=== PATIENT | male | born 1950 | race Caucasian/White ===

== ENCOUNTER 2017-08-30 18:26 | Emergency (ER) | payer SELFPAY ==
[~2017-08-30] VITALS: Ht 170.2 cm; Wt 75.0 kg
[2017-08-30 18:28] VITALS: BP 165/88; PULSE 77; RESP 18; TEMP 97.5; O2SAT 99
[2017-08-30] MEDS ORDERED: CYMB60CA PO (19:36)
[2017-08-30] MEDS ORDERED: EZET10 PO (19:36)
[2017-08-30] MEDS ORDERED: LOSA100T PO (19:36)
[2017-08-30] MEDS ORDERED: PRED5TAB PO (19:36)
[2017-08-30] MEDS ORDERED: LIPI80TA PO (19:36)
[2017-08-30] MEDS ORDERED: HYDR-3113 PO (19:36)
[2017-08-30] MEDS ORDERED: EVOL1.7I (19:36)
[2017-08-30] MEDS ORDERED: FOLI400T PO (19:36)
[2017-08-30] MEDS ORDERED: OMEG1CAP53 PO (19:36)
[2017-08-30] MEDS ORDERED: BYST10TA2 PO (19:36)
[2017-08-30] MEDS ORDERED: MULTTAB67 PO (19:36)
[2017-08-30] MEDS ORDERED: HYDR25TA5 PO (19:36)
[2017-08-30] MEDS ORDERED: NIAC500T5 PO (19:36)
[2017-08-30] MEDS ORDERED: HUMI40KI SQ (19:36)
[2017-08-30] MEDS ORDERED: OMEGCAP PO (19:36)
[2017-08-30] MEDS ORDERED: ASPI-183 PO (19:36)
[2017-08-30] MEDS ORDERED: OMEP20TA93 PO (19:36)
[2017-08-30] MEDS ORDERED: KETOROLAC TROMETHAMINE 60 MG/2 ML (IM) VIAL IM ONE (20:30)
[2017-08-30] MEDS ORDERED: DIAZEPAM 10 MG TAB PO ONE (20:30)
--- NOTE | 2017-08-30 20:39 | PD ---
HPI Chief Complaint: Back/ Neck Pain or Injury Time Seen by Provider: 19:33 Travel History International Travel<30 days: No Contact w/Intl Traveler<30days: No Traveled to known affect area: No History of Present Illness HPI This is a 67-year-old male here with neck pain and muscle spasms since this morning. He reports he awoke in the middle of the night with mild neck pain. He thought he slipped on the neck wrong. As the day progressed the pain and muscle stiffness intensified. He denies headache, fever or chills. No injury or trauma. He reports the pain is localized to either side of the neck and worse with range of motion. Slightly relieved with rest. Symptom severity is moderate. PFSH Past Medical History Hx Anticoagulant Therapy: Yes (plavix) Cardiovascular Problems: Yes (HTN, cholesterol) High Cholesterol: Yes Hypertension: Yes Myocardial Infarction: Yes Past Surgical History Cholecystectomy: Yes Coronary Artery Bypass Graft: Yes Tonsillectomy: Yes Other Surgery: Yes (thyroidectomy ) Social History Alcohol Use: Yes Tobacco Use: No Substance Use: No Allergies-Medications (Allergen,Severity, Reaction): Coded Allergies: No Known Allergies (Unverified , 08/30/17) Reported Meds & Prescriptions Reported Meds & Active Scripts Active Reported Repatha PF Inj (Evolocumab PF Inj) 140 Mg/Ml Syr [place]-3 Fish Oil/Vitamin (Fish Oil-Cholecalciferol) 1,000-1,000 Mg Cap 1 Cap PO DAILY Multiple Vitamin 1 Tab 1 Tab PO DAILY Folic Acid 0.4 Mg Tab 400 Mcg PO DAILY Niacin 500 Mg Tab 500 Mg PO DAILY Aspirin 325 Mg Tab 325 Mg PO DAILY Vicodin Es (Hydrocodone-Acetaminophen) 7.5-300 Tab 1 Tab PO BID PRN Omeprazole 20 Mg Tab 20 Mg PO DAILY Cymbalta DR (Duloxetine HCl) 60 Mg Capdr 60 Mg PO DAILY Prednisone 5 Mg Tab 3 Mg PO DAILY Humira 2-Pack Inj (Adalimumab 2-Pack Inj) 40 Mg/0.8 Ml Syr 40 Mg SQ Q14D Lovaza (Hziok-1-Rfat Ethyl Esters) 1 Gm Cap 2 Gm PO QID Hydrochlorothiazide 25 Mg Tab 25 Mg PO DAILY Bystolic (Nebivolol) 10 Mg Tab 10 Mg PO DAILY Losartan (Losartan Potassium) 100 Mg Tab 100 Mg PO DAILY Zetia (Ezetimibe) 10 Mg Tab 10 Mg PO DAILY Lipitor (Atorvastatin Calcium) 80 Mg Tab 80 Mg PO HS Review of Systems Except as stated in HPI: all other systems reviewed are Neg General / Constitutional: No: Fever Eyes: No: Visual changes HENT: No: Headaches Cardiovascular: No: Chest Pain or Discomfort Respiratory: No: Shortness of Breath Gastrointestinal: No: Abdominal Pain Genitourinary: No: Dysuria Physical Exam Narrative GENERAL: Alert and well-appearing 67-year-old male SKIN: Warm and dry. No rash HEAD: Normocephalic. Atraumatic EYES: The pulse equal, round, reactive to light. EOMs intact. NECK: Supple, trachea midline. No JVD or lymphadenopathy. No midline cervical spine tenderness. No meningismus. + Trapezius muscle spasms and laterally CARDIOVASCULAR: Regular rate and rhythm without murmurs, gallops, or rubs. RESPIRATORY: Breath sounds equal bilaterally. No accessory muscle use. GASTROINTESTINAL: Abdomen soft, non-tender, nondistended. MUSCULOSKELETAL: No cyanosis, or edema. Normal strength and sensation in the upper extremities. BACK: Nontender without obvious deformity. No CVA tenderness. Data Data Last Documented VS Vital Signs Date Time Temp Pulse Resp B/P (MAP) Pulse Ox O2 Delivery O2 Flow Rate FiO2 08/30/17 18:28 97.5 77 18 165/88 (113) 99 Orders Orders Ketorolac Inj (Toradol Inj) (08/30/17 20:30) Diazepam (Valium) (08/30/17 20:30) MDM Medical Decision Making Medical Screen Exam Complete: Yes Emergency Medical Condition: Yes Differential Diagnosis Cervical strain, torticollis, unlikely cervical fracture Narrative Course This is a 67-year-old male here with nontraumatic neck pain since this morning. He attributes this to possibly sitting on his neck wrong. The pain and muscle stiffness has increased since this morning. Making range of motion difficult. He has no midline spine tenderness. He has a normal neurologic exam. Patient be treated for torticollis. Patient reports symptom improvement after Toradol and Valium. Patient be discharged home with prescription for Robaxin. Diagnosis Primary Impression: Cervical strain Qualified Codes: S16.1XXA - Strain of muscle, fascia and tendon at neck level , initial encounter Referrals: Primary Care Physician Additional Instructions: Muscle relaxer as needed for muscle spasm and stiffness. Take your current pain medication as needed for pain. Use ice and/or heat for muscle spasms. Follow-up with her primary doctor Scripts Methocarbamol (Robaxin) 750 Mg Tab 750 MG PO TID for Muscle Spasm, #12 TAB 0 Refills Prov: Dianne Gonzalez 08/30/17 Disposition: 01 DISCHARGE HOME Condition: Stable Dianne Gonzalez Aug 30, 2017 20:39
[2017-08-30] MEDS ORDERED: ROBA750T PO (20:51)
[2017-08-31] MEDS ORDERED: PERC5TAB12 PO (16:31)
== END 2017-08-30 21:03 | disposition home or self-care (01) ==
LOC: NEPK 18:26
DX: S16.1XXA Strain of muscle, fascia and tendon at neck level, initial encounter (principal); E78.00 Pure hypercholesterolemia, unspecified; I10 Essential (primary) hypertension; X58.XXXA Exposure to other specified factors, initial encounter
CPT/HCPCS: 96372; 99284; J1885

== ENCOUNTER 2017-08-31 13:31 | Emergency (ER) | payer MEDICARE ==
[~2017-08-31 13:31] MED LIST: ASPI-183 PO; BYST10TA2 PO; CYMB60CA PO; EVOL1.7I; EZET10 PO; FOLI400T PO; HUMI40KI SQ; HYDR-3113 PO; HYDR25TA5 PO; LIPI80TA PO; LOSA100T PO; MULTTAB67 PO; NIAC500T5 PO; OMEG1CAP53 PO; OMEGCAP PO; OMEP20TA93 PO; PRED5TAB PO; ROBA750T PO
[2017-08-31 13:33] VITALS: BP 121/75; PULSE 95; RESP 15; TEMP 99.8; O2SAT 97
--- NOTE | 2017-08-31 16:17 | RADRPT ---
EXAM DATE/TIME: 08/31/2017 15:53 [facility] COMPARISON: No previous studies available for comparison. INDICATIONS : Shoulder and neck pain for two days. RADIATION DOSE: 41.88 CTDIvol (mGy) MEDICAL HISTORY : Hypertension. SURGICAL HISTORY : CABG Thyroidectomy.Tonsillectomy. ENCOUNTER: Initial ACUITY: 2 days PAIN SCALE: 8/10 LOCATION: Bilateral neck region. TECHNIQUE: Volumetric scanning of the cervical spine was performed. Multiplanar reconstructions in the sagittal, coronal and oblique axial planes were performed. Using automated exposure control and adjustment o f the mA and/or kV according to patient size, radiation dose was kept as low as reasonably achievable to obtain optimal diagnostic quality images. DICOM format image data is available electronically f or review and comparison. FINDINGS: VERTEBRAE: Normal vertebral body height. ALIGNMENT: No evidence of subluxation. C2-C3: The bony spinal canal is normal in size. No evidence of disc bulge or herniation. The neural forami na are bilaterally patent. C3-C4: The bony spinal canal is normal in size. No evidence of disc bulge or herniation. Moderate bilateral neural foraminal narrowing. C4-C5: Osteophytic ridging without canal stenosis. Moderate bilateral neural foraminal narrowing. C5-C6: Osteophytic ridging without canal stenosis. Severe bilateral neural foraminal narrowing. C6-C7: Osteophytic ridging without canal stenosis. Moderate right and mild left neural foraminal narrowing. C7-T1: The bony spinal canal is normal in size. No evidence of disc bulge or herniation. The neural forami na are bilaterally patent. CONCLUSION: 1. Degenerative changes without fracture or subluxation. Walker Gamboa MD on August 31, 2017 at 16:12 Board Certified Radiologist. This report was verified electronically.
[2017-08-31] MEDS ORDERED: ONDANSETRON ODT 4 MG TAB PO ONE (16:30)
[2017-08-31] MEDS ORDERED: MORPHINE SULFATE 2 MG/ML INJ IM ONE (16:30)
[2017-08-31] MEDS ORDERED: PERC5TAB12 PO (16:31)
--- NOTE | 2017-08-31 16:32 | PD ---
HPI Chief Complaint: Musculoskeletal Complaint Time Seen by Provider: 15:24 Travel History International Travel<30 days: No Contact w/Intl Traveler<30days: No Traveled to known affect area: No History of Present Illness HPI This is a 67-year-old male with acute neck pain and muscle spasms 2 days. He was evaluated in the emergency room last night. He was diagnosed with torticollis and discharged home with prescription for Robaxin. He presents today stating the pain is worse. He denies fever or chills. No paresthesia or weakness of extremities. He is localized to the back and right side of the neck. Worse with movement of the neck and slightly relieved with rest. Severity is moderate to severe PFSH Past Medical History Hx Anticoagulant Therapy: Yes (plavix) Cardiovascular Problems: Yes (HTN, cholesterol) High Cholesterol: Yes Hypertension: Yes Myocardial Infarction: Yes Past Surgical History Cholecystectomy: Yes Coronary Artery Bypass Graft: Yes Tonsillectomy: Yes Other Surgery: Yes (thyroidectomy ) Social History Alcohol Use: Yes Tobacco Use: No Substance Use: No Allergies-Medications (Allergen,Severity, Reaction): Coded Allergies: No Known Allergies (Unverified , 08/30/17) Reported Meds & Prescriptions Reported Meds & Active Scripts Active Percocet (Oxycodone-Acetaminophen) 5-325 mg Tab 1 Tab PO Q6H PRN 3 Days Robaxin (Methocarbamol) 750 Mg Tab 750 Mg PO TID Reported Repatha PF Inj (Evolocumab PF Inj) 140 Mg/Ml Syr [place]-3 Fish Oil/Vitamin (Fish Oil-Cholecalciferol) 1,000-1,000 Mg Cap 1 Cap PO DAILY Multiple Vitamin 1 Tab 1 Tab PO DAILY Folic Acid 0.4 Mg Tab 400 Mcg PO DAILY Niacin 500 Mg Tab 500 Mg PO DAILY Aspirin 325 Mg Tab 325 Mg PO DAILY Vicodin Es (Hydrocodone-Acetaminophen) 7.5-300 Tab 1 Tab PO BID PRN Omeprazole 20 Mg Tab 20 Mg PO DAILY Cymbalta DR (Duloxetine HCl) 60 Mg Capdr 60 Mg PO DAILY Prednisone 5 Mg Tab 3 Mg PO DAILY Humira 2-Pack Inj (Adalimumab 2-Pack Inj) 40 Mg/0.8 Ml Syr 40 Mg SQ Q14D Lovaza (Bmntg-7-Escr Ethyl Esters) 1 Gm Cap 2 Gm PO QID Hydrochlorothiazide 25 Mg Tab 25 Mg PO DAILY Bystolic (Nebivolol) 10 Mg Tab 10 Mg PO DAILY Losartan (Losartan Potassium) 100 Mg Tab 100 Mg PO DAILY Zetia (Ezetimibe) 10 Mg Tab 10 Mg PO DAILY Lipitor (Atorvastatin Calcium) 80 Mg Tab 80 Mg PO HS Review of Systems Except as stated in HPI: all other systems reviewed are Neg General / Constitutional: No: Fever Eyes: No: Visual changes HENT: No: Headaches Cardiovascular: No: Chest Pain or Discomfort Respiratory: No: Shortness of Breath Gastrointestinal: No: Abdominal Pain Genitourinary: No: Dysuria Musculoskeletal: Positive: Pain (right posterior neck pain) Skin: No Rash Physical Exam Narrative GENERAL: Alert and well-appearing 67-year-old male. Patient appears acutely uncomfortable. SKIN: Warm and dry. No rash HEAD: Atraumatic. Normocephalic. EYES: Pupils equal and round. No scleral icterus. EOMs intact. No injection or drainage. ENT: No nasal bleeding or discharge. Mucous membranes pink and moist. NECK: Trachea midline. No JVD. No lymphadenopathy. + Tenderness to the posterior aspect of the neck including the midline spine. + Tenderness to the right trapezius muscle with spasm CARDIOVASCULAR: Regular rate and rhythm. RESPIRATORY: No accessory muscle use. Clear to auscultation. Breath sounds equal bilaterally. GASTROINTESTINAL: Abdomen soft, non-tender, nondistended. MUSCULOSKELETAL: Extremities without clubbing, cyanosis, or edema. No obvious deformities. NEUROLOGICAL: Awake and alert. No obvious cranial nerve deficits. Motor grossly within normal limits. Five out of 5 muscle strength in the arms and legs. Normal speech. Equal hand grasp PSYCHIATRIC: Appropriate mood and affect; insight and judgment normal. Data Data Last Documented VS Vital Signs Date Time Temp Pulse Resp B/P (MAP) Pulse Ox O2 Delivery O2 Flow Rate FiO2 08/31/17 13:33 99.8 95 15 121/75 (90) [address] Cerv Spine W/O Contrast (08/31/17 15:31) Morphine Inj (Morphine Inj) (08/31/17 16:30) Ondansetron Odt (Zofran Odt) (08/31/17 16:30) Ed Discharge Order (08/31/17 16:32) MDM Medical Decision Making Medical Screen Exam Complete: Yes Emergency Medical Condition: Yes Differential Diagnosis Torticollis, cervical radiculopathy, cervical fracture Narrative Course This is a 67-year-old male with acute neck pain and muscle spasms 2 days. No trauma. He was evaluated in the emergency room last night. He was diagnosed with torticollis and discharged home with prescription for Robaxin. He presents today stating the pain is worse. He appears to be in significant pain. He is afebrile. He has a normal neurologic exam. Of note the patient is on [place] 12/01/24 twice a day for his chronic pain due to RA. He is a resident of [place] and visiting [place]. Given the patient's significant pain CT scan of cervical spine was ordered. CT of cervical spine: Negative for fracture subluxation Diagnostic studies discussed with patient. He was given 2 mg IM morphine. He reports significant pain improvement. He remains neurologically intact. He will be given a short dose of Percocet for his acute pain. Diagnosis Primary Impression: Neck pain Referrals: Pain Management Additional Instructions: Stop Taking the hydrocodone. Start taking the Percocet as needed. Do not mix the 2 pain medications. Ice and/or heat for comfort Scripts Oxycodone-Acetaminophen (Percocet) 5-325 mg Tab 1 TAB PO Q6H Y for PAIN for 3 Days, #12 TAB 0 Refills Prov: Dianne Gonzalez 08/31/17 Disposition: 01 DISCHARGE HOME Condition: Stable Dianne Gonzalez Aug 31, 2017 16:32
== END 2017-08-31 17:00 | disposition home or self-care (01) ==
LOC: NEPK 13:31
DX: M54.2 Cervicalgia (principal); E78.00 Pure hypercholesterolemia, unspecified; I10 Essential (primary) hypertension; I25.2 Old myocardial infarction
CPT/HCPCS: 72125; 96372; 99285; J2270